=== PATIENT | female | born 1980 | race Hispanic/Latino ===

== ENCOUNTER 2018-04-16 12:55 | Emergency (ER) | payer OTHER ==
[2018-04-16 13:22] VITALS: TEMP 98.1
--- NOTE | 2018-04-16 13:41 | ED.PDOC ---
History of Present Illness - General Chief Complaint: General Stated Complaint: dizzy,weak, numbness in arms Time Seen by Provider: 04/16/18 13:35 Source: patient, Vital Signs reviewed, EMS notes reviewed Additional Information: 37 YEAR OLD FEMALE FROM [place] NOW STAYING IN A RV WITH HER AND INFANT ( THE GOT A JOB HERE ) THIS MORNING SHE HAD A SYNCOPAL EPISODE WHERE SHE FOUND HERSELF IN THE RV LEANING ON THE WALL NEAR THE SINK SHE REMEMBERS SHE WAS ABOUT TO GO TO THE WASHING MACHINE AND HAD SOME COINS IN HER HAND WHEN SHE CAME BACK FROM THE EPISODE IT WAS 10 AM SHE WAITED FOR HER TO COME BACK FROM WORK AND WENT TO [employer] WHICH SHE VOMITED NOW SHE IS ASYMPTOMATIC REPORTS NO HEADACHE NO HISTORY OF SEIZURES NO CHEST PAIN SHORTNESS OF BREATH SHE HAD A MISCARRIAGE ON MAR 26 SHE IS 3 PARA 1 SHE HAS NO HISTORY OF HEAD INJURY NO MEDICATION NO OTC MEDS SHE HAS NO HISTORY OF DRUG USE OR ALCOHOL USE - History of Present Illness Timing/Duration: 1 hour Severity: moderate Improving Factors: nothing Worsening Factors: nothing Associated Symptoms: denies symptoms Allergies/Adverse Reactions: Allergies Ibuprofen Allergy (Verified 04/16/18 13:27) Home Medications: Ambulatory Orders Metformin HCl 500 mg PO DAILY #30 tab 04/16/18 Review of Systems - Review of Systems Constitutional: States: no symptoms reported EENTM: States: no symptoms reported Respiratory: States: no symptoms reported Cardiology: States: no symptoms reported Gastrointestinal/Abdominal: States: no symptoms reported Genitourinary: States: no symptoms reported Musculoskeletal: States: no symptoms reported Skin: States: no symptoms reported Neurological: States: no symptoms reported Endocrine: States: no symptoms reported Hematologic/Lymphatic: States: no symptoms reported Past Medical History (General) - Patient Medical History Hx Diabetes: Yes - Vaccination History Hx Tetanus, Diphtheria Vaccination: No Hx Influenza Vaccination: No Hx Pneumococcal Vaccination: No - Social History Hx Tobacco Use: No Hx Alcohol Use: No - Triage Comment ED Triage Comment: has had hysterectomy Family Medical History - Family History Father Hx Family Stroke: Yes Hx Cardiac Disease: Yes Hx Family Diabetes: Yes Physical Exam - Physical Exam General Appearance: Alert, Anxious, Obese Eye Exam: bilateral normal Ears, Nose, Throat: hearing grossly normal, normal ENT inspection, normal pharynx Neck: non-tender, full range of motion, supple Respiratory: chest non-tender, lungs clear, normal breath sounds, no respiratory distress Cardiovascular/Chest: normal peripheral pulses, regular rate, rhythm, no edema, no gallop, no JVD Gastrointestinal/Abdominal: normal bowel sounds, non tender, soft, no organomegaly, no pulsatile mass Back Exam: normal inspection, no CVA tenderness, no vertebral tenderness Extremity: normal range of motion, non-tender, normal inspection, no pedal edema Neurologic: dyer and washer II-XII nml as tested, no motor/sensory deficits, alert, normal mood/affect, oriented x 3 DTR: 3+: Biceps, left, Biceps, right, Triceps, left, Triceps, right, Brachioradialis, left, Brachioradialis, right, Achilles, left, Achilles, right, Patellar, left, Patellar, right Skin Exam: normal color, warm/dry Lymphatic: no adenopathy, axilla node tender (R) Progress - Results/Orders Results/Orders: Laboratory Tests 04/16/18 04/16/18 04/16/18 13:50 13:50 13:50 WBC 8.0 RBC 5.06 Hgb 15.6 Hct 46.5 MCV 92.0 MCH 30.8 MCHC 33.5 RDW 12.4 Plt Count 330 MPV 7.1 L Absolute Neuts (auto) 5.30 Absolute Lymphs (auto) 2.20 Absolute Monos (auto) 0.40 Absolute Eos (auto) 0.10 Absolute Basos (auto) 0.00 Neutrophils % 65.7 Lymphocytes % 27.5 Monocytes % 4.9 Eosinophils % 1.4 Basophils % 0.5 PT 9.9 INR 0.99 PTT (SP) 23.1 D-Dimer, Quantitative 0.27 Sodium 138 Potassium 3.2 L Chloride 108 Carbon Dioxide 18 L Anion Gap 15.2 BUN 12 Creatinine 0.53 L BUN/Creatinine Ratio 22.6 H Random Glucose 308 H Serum Osmolality 287.1 Calcium 8.9 Total Bilirubin 1.0 AST 52 H ALT 33 Alkaline Phosphatase 49 Serum Total Protein 7.3 Albumin 3.9 Globulin 3.4 Albumin/Globulin Ratio 1.1 Serum HCG, Qual 04/16/18 13:50 WBC RBC Hgb Hct MCV MCH MCHC RDW Plt Count MPV Absolute Neuts (auto) Absolute Lymphs (auto) Absolute Monos (auto) Absolute Eos (auto) Absolute Basos (auto) Neutrophils % Lymphocytes % Monocytes % Eosinophils % Basophils % PT INR PTT (SP) D-Dimer, Quantitative Sodium Potassium Chloride Carbon Dioxide Anion Gap BUN Creatinine BUN/Creatinine Ratio Random Glucose Serum Osmolality Calcium Total Bilirubin AST ALT Alkaline Phosphatase Serum Total Protein Albumin Globulin Albumin/Globulin Ratio Serum HCG, Qual Negative PT LAB DATA REVIEWED SHE IS A DIABETIC WITH DEHYDRATION SECONDARY TO BLOOD GLUCOSE SHE WAS ADVISED TO DRINK PLENTY OF FLUIDS HER TILT WAS NEG WE WILL GIVE HER PRISCRIPTION FOR METFORMIN Departure - Departure Clinical Impression: Dehydration, Type II diabetes mellitus, Atypical syncope Time of Disposition: 15:38 Disposition: Discharge to Home or Self Care Condition: Good Departure Forms: ED Discharge - Pt. Copy, Patient Portal Self Enrollment Prescriptions: Metformin HCl 500 mg PO DAILY #30 tab Home Medications: Ambulatory Orders Metformin HCl 500 mg PO DAILY #30 tab 04/16/18
[2018-04-16 15:27] VITALS: BP 121/82; O2SAT 100
== END 2018-04-16 15:56 | disposition home or self-care (01) ==
LOC: ER 12:55
DX: R55 Syncope and collapse (principal); E86.0 Dehydration; E11.9 Type 2 diabetes mellitus without complications; Z79.84 Long term (current) use of oral hypoglycemic drugs